=== PATIENT | male | born 2000 | race Hispanic/Latino ===

== ENCOUNTER 2022-10-14 21:06 | Inpatient (IN) | payer SELFPAY ==
[2022-10-14] MEDS ORDERED: NA CHLORIDE 0.9% 2,000 ML ONE (23:34)
[2022-10-15 00:09] LABS: Hematocrit 54.8 % (39.6-49.0); MCV 84.6 fL (80-100); MPV 10.1 fL (7.6-11.3); Platelets 361 thou/uL (152-406); RBC Red Blood Cell Count 6.47 M/uL (4.33-5.43)
[2022-10-15 00:36] LABS: Bilirubin Total 0.9 mg/dL (0.2-1.0); Potassium 4.3 mEq/L (3.5-5.1); Protein, Total 11.4 g/dL (6.4-8.2)
[2022-10-15 00:39] LABS: Albumin 6.7 g/dL (3.4-5.0)
[2022-10-15] MEDS ORDERED: NA CHLORIDE 0.9% 1,000 ML ONE (01:12)
--- NOTE | 2022-10-15 01:32 | EDPHYS ---
Physician Documentation [facility] Name: Liset Lazo Jr Age: 21 yrs Sex: Male : 2000 Arrival Date: 10/14/2022 Time: 21:06 Bed 8 Private MD: ED Physician Amarjit Pacheco HPI: 10/14 23:58 This 21 yrs old Male presents to ER via Ambulatory with complaints of Heat Exposure, kdr Headache, Nausea/Vomiting, MUSCLE ACHES/PAINS. 23:59 The patient states that he was at work this morning and working in the heat. When he kdr took a break a little bit later he started to drink water and some electrolyte solutions. He began to feel somewhat nauseated and vomited and had some tenseness in his stomach associated with the vomiting. In general he just does not feel well at this time and feels dehydrated. He is nontoxic-appearing on presentation. Onset: The symptoms/episode began/occurred suddenly, this morning. Severity of symptoms: At their worst the symptoms were mild moderate just prior to arrival, in the emergency department the symptoms are unchanged. The patient has not experienced similar symptoms in the past. The patient has not recently seen a physician. Historical: - Allergies: 21:38 No Known Allergies; cm10 - Home Meds: 21:38 None [Active]; cm10 - PMHx: 21:38 None; cm10 - PSHx: 21:38 Appendectomy; cm10 - Immunization history:: Adult Immunizations unknown. - Social history:: Smoking status: Reported history of juuling and/or vaping. ROS: 23:59 Constitutional: Negative for fever, chills, and weight loss, Eyes: Negative for injury, kdr pain, redness, and discharge, Neck: Negative for injury, pain, and swelling, Cardiovascular: Negative for chest pain, palpitations, and edema, Respiratory: Negative for shortness of breath, cough, wheezing, and pleuritic chest pain, Back: Negative for injury and pain, MS/Extremity: Negative for injury and deformity, Skin: Negative for injury, rash, and discoloration, Neuro: Negative for headache, weakness, numbness, tingling, and seizure activity. Psych: Negative for depression, anxiety, suicide ideation, homicidal ideation, and hallucinations, Allergy/Immunology: Negative for hives, rash, and allergies, Endocrine: Negative for neck swelling, polydipsia, polyuria, polyphagia, and marked weight changes, Hematologic/Lymphatic: Negative for swollen nodes, abnormal bleeding, and unusual bruising. 23:59 Abdomen/GI: Positive for abdominal pain, nausea and vomiting. Exam: 23:59 Constitutional: This is a well developed, well nourished patient who is awake, alert, kdr and in no acute distress. Head/Face: Normocephalic, atraumatic. Eyes: Pupils equal round and reactive to light, extra-ocular motions intact. Lids and lashes normal. Conjunctiva and sclera are non-icteric and not injected. Cornea within normal limits. Periorbital areas with no swelling, redness, or edema. Neck: Trachea midline, no thyromegaly or masses palpated, and no cervical lymphadenopathy. Supple, full range of motion without nuchal rigidity, or vertebral point tenderness. No Meningismus. Chest/axilla: Normal chest wall appearance and motion. Nontender with no deformity. No lesions are appreciated. Cardiovascular: Regular rate and rhythm with a normal S1 and S2. No gallops, murmurs, or rubs. Normal PMI, no JVD. No pulse deficits. Respiratory: Lungs have equal breath sounds bilaterally, clear to auscultation and percussion. No rales, rhonchi or wheezes noted. No increased work of breathing, no retractions or nasal flaring. Abdomen/GI: Soft, non-tender, with normal bowel sounds. No distension or tympany. No guarding or rebound. No evidence of tenderness throughout. Back: No spinal tenderness. No costovertebral tenderness. Full range of motion. Skin: Warm, dry with normal turgor. Normal color with no rashes, no lesions, and no evidence of cellulitis. MS/ Extremity: Pulses equal, no cyanosis. Neurovascular intact. Full, normal range of motion. Neuro: Awake and alert, GCS 15, oriented to person, place, time, and situation. Cranial nerves II-XII grossly intact. Motor strength 5/5 in all extremities. Sensory grossly intact. Cerebellar exam normal. Normal gait. Psych: Awake, alert, with orientation to person, place and time. Behavior, mood, and affect are within normal limits. Vital Signs: 21:36 BP 134 / 80; Pulse 106; Resp 16; Temp 98; Pulse Ox 100% ; Weight 89.81 kg; Height 5 ft. cm10 5 in. ; Pain 10; 23:30 BP 118 / 70; Pulse 84; Resp 16; Pulse Ox 100% on R/A; jb4 10/15 01:00 BP 137 / 68; Pulse 86; Resp 16; Pulse Ox 100% on R/A; 02:45 BP 127 / 66; Pulse 85; Resp 18 S; Pulse Ox 97% on R/A; as6 10/14 21:36 Body Mass Index 32.95 (89.81 kg, 165.1 cm) cm10 10/14 21:36 Pain Scale: Adult cm10 MDM: 10/14 23:59 Data reviewed: vital signs, nurses notes, lab test result(s). kdr 10/15 01:31 Patient medically screened. kdr 10/14 23:10 Order name: CBC with Diff; Complete Time: 00:29 kdr 10/14 23:10 Order name: CMP; Complete Time: 00:54 kdr 10/14 23:10 Order name: CPK; Complete Time: 00:54 kdr 10/15 01:28 Order name: UAM la1 10/15 01:28 Order name: ETOH Level la1 10/15 01:28 Order name: UDS la1 10/15 01:28 Order name: CT Abd/Pelvis - Without Contrast la1 Administered Medications: 10/14 23:32 Drug: NS 0.9% IV 1000 ml Route: IV; Rate: 1 bolus; Site: right antecubital; [facility] 10/15 02:48 Follow up: Response: No adverse reaction; IV Status: Completed infusion; IV Intake: as6 1000ml 10/14 23:32 Drug: NS 0.9% IV 1000 ml Route: IV; Rate: 125 ml/hr; Site: right antecubital; [facility] 10/15 02:48 Follow up: Response: No adverse reaction; IV Status: Infusion continued upon admission; as6 IV Intake: 500ml 01:10 Drug: NS 0.9% IV 1000 ml Route: IV; Rate: 1 bolus; Site: right antecubital; 02:48 Follow up: Response: No adverse reaction; IV Status: Completed infusion; IV Intake: as6 1000ml 02:13 Drug: Ondansetron IVP 4 mg Route: IVP; Site: right antecubital; jb4 02:48 Follow up: Response: No adverse reaction as6 Disposition Summary: 10/15/22 01:31 Hospitalization Ordered Hospitalization Status: Inpatient Admission kdr Provider: Duane Gillis Location: Telemetry/MedSurg (Inpatient) kdr Condition: Fair kdr Problem: new kdr Symptoms: have improved kdr Bed/Room Type: Standard kdr Room Assignment: 214(10/15/22 01:55) cg Diagnosis - Acute kidney failure, unspecified kdr - Rhabdomyolysis kdr - Dehydration kdr Forms: - Medication Reconciliation Form kdr - SBAR form kdr - Leadership Thank You Letter kdr Signatures: Dispatcher [employer] EDMS Amarjit Pacheco MD MD kdr Darling Beltran RN RN cg Jaylon Dumont RN RN jb4 Helen Garcia RN RN cm10 Abilio Ortiz RN as6 Corrections: (The following items were deleted from the chart) 10/14 21:38 21:38 PSHx: None; cm10 cm10 10/15 01:55 01:31 kdr 02:32 10/14 23:11 Urinalysis+U.LAB.BRZ ordered. EDMS EDMS
--- NOTE | 2022-10-15 01:32 | ER ---
Nurse's Notes [facility] Name: Liset Lazo Jr Age: 21 yrs Sex: Male : 2000 Arrival Date: 10/14/2022 Time: 21:06 Bed 8 Private MD: Diagnosis: Acute kidney failure, unspecified;Rhabdomyolysis;Dehydration Presentation: 10/14 21:36 Chief complaint: Patient states: Nausea and vomiting onset today. Pt reports vomiting 9 cm10 times today. Pt states, "I think that it is heat exhaustion.". Coronavirus screen: Vaccine status: Patient reports being unvaccinated. Ebola Screen: Patient denies travel to an Ebola-affected area in the 21 days before illness onset. No symptoms or risks identified at this time. Initial Sepsis Screen: Does the patient meet any 2 criteria? No. Patient's initial sepsis screen is negative. Does the patient have a suspected source of infection? No. Patient's initial sepsis screen is negative. Risk Assessment: Do you want to hurt yourself or someone else? Patient reports no desire to harm self or others. Onset of symptoms was October 14, 2022. 21:36 Method Of Arrival: Ambulatory cm10 21:36 Acuity: AGUSTÍN 3 cm10 Historical: - Allergies: 21:38 No Known Allergies; cm10 - Home Meds: 21:38 None [Active]; cm10 - PMHx: 21:38 None; cm10 - PSHx: 21:38 Appendectomy; cm10 - Immunization history:: Adult Immunizations unknown. - Social history:: Smoking status: Reported history of juuling and/or vaping. Screenin:30 [facility] ED Fall Risk Assessment (Adult) History of falling in the last 3 months, jb4 including since admission No falls in past 3 months (0 pts) Confusion or Disorientation No (0 pts) Score/Fall Risk Level 0 - 2 = Low Risk Oriented to surroundings, Maintained a safe environment. Abuse screen: Denies threats or abuse. Nutritional screening: No deficits noted. Tuberculosis screening: No symptoms or risk factors identified. Assessment: 23:36 General: Appears in no apparent distress. uncomfortable, Behavior is calm, cooperative, jb4 appropriate for age. Pain: Complains of pain in Headache Pain does not radiate. Pain currently is 10 out of 10 on a pain scale. Neuro: Level of Consciousness is awake, alert, obeys commands, Oriented to person, place, time, situation. Cardiovascular: Patient's skin is warm and dry. Respiratory: Airway is patent Respiratory effort is even, unlabored, Respiratory pattern is regular, symmetrical. GI: No signs and/or symptoms were reported involving the gastrointestinal system. : No signs and/or symptoms were reported regarding the genitourinary system. EENT: No signs and/or symptoms were reported regarding the EENT system. Derm: Skin is intact, Skin is dry, Skin is pale, Skin temperature is warm. Musculoskeletal: Circulation, motion, and sensation intact. Range of motion: intact in all extremities. 10/15 01:00 Reassessment: Patient appears in no apparent distress at this time. Patient and/or jb4 family updated on plan of care and expected duration. Pain level reassessed. Patient is alert, oriented x 3, equal unlabored respirations, skin warm/dry/pink. 01:52 Reassessment: Patient appears in no apparent distress at this time. Patient and/or jb4 family updated on plan of care and expected duration. Pain level reassessed. Patient is alert, oriented x 3, equal unlabored respirations, skin warm/dry/pink. 03:00 Reassessment: Patient appears in no apparent distress at this time. Patient and/or jb4 family updated on plan of care and expected duration. Pain level reassessed. Patient is alert, oriented x 3, equal unlabored respirations, skin warm/dry/pink. Vital Signs: 10/14 21:36 BP 134 / 80; Pulse 106; Resp 16; Temp 98; Pulse Ox 100% ; Weight 89.81 kg; Height 5 ft. cm10 5 in. ; Pain 10/10; 23:30 BP 118 / 70; Pulse 84; Resp 16; Pulse Ox 100% on R/A; jb4 10/15 01:00 BP 137 / 68; Pulse 86; Resp 16; Pulse Ox 100% on R/A; jb4 02:45 BP 127 / 66; Pulse 85; Resp 18 S; Pulse Ox 97% on R/A; as6 10/14 21:36 Body Mass Index 32.95 (89.81 kg, 165.1 cm) cm10 10/14 21:36 Pain Scale: Adult cm10 ED Course: 08/17 21:12 Patient arrived in ED. jj6 21:32 Amarjit Pacheco MD is Attending Physician. kdr 21:38 Triage completed. cm10 21:38 Arm band placed on Patient placed in waiting room. cm10 23:03 Abilio Ortiz, RN is Primary Nurse. as6 23:25 Initial lab(s) drawn, by me, sent to lab. Inserted saline lock: 18 gauge in right jb4 antecubital area, using aseptic technique. Blood collected. 23:30 Patient has correct armband on for positive identification. Bed in low position. Call jb4 light in reach. Side rails up X 1. Client placed on continuous cardiac and pulse oximetry monitoring. NIBP monitoring applied. 23:33 CMP Sent. jb4 23:33 CPK Sent. jb4 23:33 CBC with Diff Sent. jb4 10/15 01:30 Duane Gillis MD is Hospitalizing Provider. kdr 02:02 CT Abd/Pelvis - Without Contrast In Process Unspecified. EDMS 02:44 No provider procedures requiring assistance completed. Patient admitted, IV remains in as6 place. 02:49 Provided Education on: need for admit. as6 Administered Medications: 10/14 23:32 Drug: NS 0.9% IV 1000 ml Route: IV; Rate: 1 bolus; Site: right antecubital; [facility] 10/15 02:48 Follow up: Response: No adverse reaction; IV Status: Completed infusion; IV Intake: as6 1000ml 10/14 23:32 Drug: NS 0.9% IV 1000 ml Route: IV; Rate: 125 ml/hr; Site: right antecubital; [facility] 10/15 02:48 Follow up: Response: No adverse reaction; IV Status: Infusion continued upon admission; as6 IV Intake: 500ml 01:10 Drug: NS 0.9% IV 1000 ml Route: IV; Rate: 1 bolus; Site: right antecubital; 4 02:48 Follow up: Response: No adverse reaction; IV Status: Completed infusion; IV Intake: as6 1000ml 02:13 Drug: Ondansetron IVP 4 mg Route: IVP; Site: right antecubital; 4 02:48 Follow up: Response: No adverse reaction as6 Medication: 02:44 VIS not applicable for this client. as6 Intake: 02:48 IV: 1000ml; Total: 1000ml. as6 02:48 IV: 1000ml; Total: 2000ml. as6 02:48 IV: 500ml; Total: 2500ml. as6 Outcome: 01:31 Decision to Hospitalize by Provider. kdr 02:44 Condition: stable as6 02:44 Instructed on the need for admit. 02:49 Admitted to Med/surg accompanied by nurse, via wheelchair, with chart. as6 03:39 Patient left the ED. jb4 Signatures: Dispatcher [employer] EDMS Amarjit Pacheco MD MD kdr Bryson, James RN RN jb4 Inna Crockett Ashby, RN RN as6 Helen Garcia RN RN cm10 Corrections: (The following items were deleted from the chart) 10/14 21:38 21:38 PSHx: None; cm10 cm10
--- NOTE | 2022-10-15 01:48 | P.HP ---
Certification for Inpatient Patient admitted to: Inpatient With expected LOS: >2 Midnights Patient will require the following post-hospital care: None Practitioner: I am a practitioner with admitting privileges, knowledge of patient current condition, hospital course, and medical plan of care. Services: Services provided to patient in accordance with Admission requirements found in Title 42 Section 412.3 of the Code of Federal Regulations Patient History Date of Service: 10/15/22 Reason for admission: Acute renal failure History of Present Illness: Otherwise healthy 19-year-old male presents emergency department chief complaint of heat exhaustion. 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 He reports decent oral intake, denies frequent use of NSAIDs, has not been on antibiotics recently, does not have any recent IV contrast exposure. No known problems with renal function in the past. He was evaluated in the emergency department his labs were significant for white blood cell count 17 hemoglobin 18.2 hematocrit 54.8 sodium 131 chloride 91 creatinine 5.98 BUN 50 GFR 13 glucose 170 albumin 6.7 CPK 531. In the ER he was given 2 L normal saline IV fluid bolus, started on maintenance fluids. Will obtain CT abdomen pelvis without contrast to evaluate for obstructive uropathy, other findings given his vomiting. Patient will be admitted to the hospital for acute renal failure. 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 moist/pink, EOMI, Sclerae nonicteric Neck: Supple, 2+ carotid pulse no bruit, No LAD, Without JVD or thyroid abnormality Respiratory: Clear to auscultation bilaterally, Normal air movement Cardiovascular: Regular rate/rhythm, Normal S1 S2 Gastrointestinal: Normal bowel sounds, No tenderness Musculoskeletal: No tenderness Integumentary: No rashes Neurological: Normal gait, Normal speech, Normal strength at 5/5 x4 extr, Normal tone, Normal affect Lymphatics: No axilla or inguinal lymphadenopathy - Studies Laboratory Data (last 24 hrs) 10/14/22 10/14/22 23:25 23:25 WBC 17.00 H Hgb 18.2 H Hct 54.8 H Plt Count 361 Sodium 131 L Potassium 4.3 BUN 50 H Creatinine 5.98 H Glucose 170 H Total Bilirubin 0.9 AST 27 ALT 38 Alkaline Phosphatase 76 Assessment and Plan - Plan Assessment: Acute renal failure Plan: Acute renal failure Nephrology consult, renal ultrasound, IV fluids. Reports feeling unwell since February but much worse last 2 days while working in the hot sun carrying scaffolding. Denies use of NSAIDs with any frequency, recent antibiotics or IV contrast exposure CPK mildly elevated, will trend. DVT PPX: Heparin subcu Code status: Full Discharge Plan: Home Plan to discharge in: 72 Hours - Advance Directives Does patient have a Living Will: No Does patient have a Durable POA for Healthcare: No - Code Status/Comfort Care Code Status Assessed: Yes (Full code) Critical Care: No Time Spent Managing Pts Care (In Minutes): 55
[2022-10-15] MEDS ORDERED: ONDANSETRON 4 MG/2 ML VIAL ONE (02:06)
[2022-10-15 02:41] LABS: Calcium Oxalate Crystals- Ur Few /HPF (None Seen); Specific Gravity 1.025 (1.005-1.030); Urine Bacteria <20 /HPF (<20); Urine Bilirubin 1+ (Negative); Urine Blood 2+ (Negative); Urine Clarity Extremely Turbid (Clear); Urine Color Yellow (Yellow); Urine Glucose TRACE (Negative); Urine Mucus 4+ /HPF (None Seen); Urine Protein 2+ (Negative); Urine Urobilinogen 1+ (Normal)
[2022-10-15 02:57] LABS: Barbiturates NEGATIVE (NEGATIVE); Benzodiazepines NEGATIVE (NEGATIVE); Cocaine NEGATIVE (NEGATIVE); METHAMPHETAM NEGATIVE (NEGATIVE); Methadone NEGATIVE (NEGATIVE); Opiates NEGATIVE (NEGATIVE); Phencyclidine NEGATIVE (NEGATIVE); THC Cannibis NEGATIVE (NEGATIVE)
[2022-10-15 03:25] VITALS: BMI 31.8
[2022-10-15] MEDS ORDERED: ACETAMINOPHEN 500 MG TAB PO PRN (03:26)
[2022-10-15] MEDS ORDERED: ONDANSETRON 4 MG/2 ML VIAL IV PRN (03:26)
[2022-10-15] MEDS: NA CHLORIDE 0.9% 1,000 ML IV SCH ×4 (03:53→23:26)
[2022-10-15 06:44] LABS: Absolute Lymphocytes (CBC) 1.5 K/uL (0.7-4.9); Hematocrit 43.7 % (39.6-49.0); Lymphocytes % 11.9 % (15.3-44.8); MPV 9.9 fL (7.6-11.3); Platelets 297 thou/uL (152-406); RBC Red Blood Cell Count 5.14 M/uL (4.33-5.43)
--- NOTE | 2022-10-15 06:56 | P.PN ---
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 Denies use of NSAIDs with any frequency, recent antibiotics or IV contrast exposure renal u/s (10/15): unremarkable CT abdomen (10/15): pending Nephrology consulted Cont IVF CPK mildly elevated, will trend. PRN pain medication PRN antiemetics VTE: heparin sq Code: Full Dispo: Home
[2022-10-15 07:14] LABS: Albumin 4.5 g/dL (3.4-5.0); Bilirubin Total 0.8 mg/dL (0.2-1.0); Potassium 3.9 mEq/L (3.5-5.1); Protein, Total 7.8 g/dL (6.4-8.2); Thyroid Stimulating Hormone 0.32 uIU/mL (0.358-3.740); Uric Acid 12.2 mg/dL (3.5-7.2)
--- NOTE | 2022-10-15 07:39 | RAD REPORT ---
EXAM DESCRIPTION: US - Renal Ultrasound-Complete - 10/15/2022 5:48 am CLINICAL HISTORY: acute renal failure COMPARISON: Abdomen Pelvis Wo Contrast dated 10/15/2022 FINDINGS: Both kidneys are normal in size, shape and echotexture. The right kidney measures 11.1 cm. No hydronephrosis, focal mass or perinephric fluid. The left kidney measures 8.9 cm. No hydronephrosis, focal mass or perinephric fluid. The urinary bladder is incompletely distended without gross abnormality seen. IMPRESSION: Unremarkable renal sonogram.
[2022-10-15] MEDS: HEPARIN 5000 UNIT/ML 1 ML VIAL SQ SCH ×2 (08:54→19:29)
[2022-10-15 14:40] LABS: UR PROTEIN 17.3 mg/dL (<11.9)
--- NOTE | 2022-10-15 14:43 | P.CNS ---
Date of Consult: 10/15/22 Reason for Consult: NABILA Requesting Physician: Duane Gillis Chief Complaint: Acute renal failure History of Present Illness: 19M who p/w gen weakness, nausea, & vomiting, admitted for heat exhaustion & NABILA. He was working outside in ambient heat in the past couple of days & started having nausea/vomiting. Serum creatinine 5.98 BUN 50 GFR 13 on adm. CPK 531. He is receiving IVF. Renal fxn better today. 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 - Family History Father History Unknown: Yes Mother Medical History: Hypertension - Social History Alcohol use: Yes CD- Drugs: No Caffeine use: Yes Place of Residence: Home Review of Systems General: Weakness Eyes: Unremarkable ENT: Unremarkable Respiratory: Unremarkable Cardiovascular: Unremarkable Gastrointestinal: Nausea, Vomiting Genitourinary: Unremarkable Musculoskeletal: Unremarkable Integumentary: Unremarkable Neurological: Unremarkable Lymphatics: Unremarkable Physical Examination Temp Pulse Resp BP Pulse Ox 98.7 F 62 14 95/52 L 97 10/15/22 12:00 10/15/22 12:00 10/15/22 12:00 10/15/22 12:00 10/15/22 12:00 General: In no apparent distress HEENT: Atraumatic, Normocephalic Neck: Supple Respiratory: Clear to auscultation bilaterally Cardiovascular: No rubs, No murmurs Gastrointestinal: Soft and benign, Non-distended Musculoskeletal: No clubbing Integumentary: No warmth Neurological: Normal speech, Normal tone Lymphatics: No axilla or inguinal lymphadenopathy Urinary: Other (no bladder distention) External genitalia: Deferred Rectal: Deferred Laboratory Data (last 24 hrs) 10/14/22 10/14/22 23:25 23:25 WBC 17.00 H Hgb 18.2 H Hct 54.8 H Plt Count 361 Sodium 131 L Potassium 4.3 BUN 50 H Creatinine 5.98 H Glucose 170 H Total Bilirubin 0.9 AST 27 ALT 38 Alkaline Phosphatase 76 Conclusions/Impression: # NABILA 2/2 prerenal state 2/2 heat exhaustion Improving, SCr improved from 5.9 to 2.9 Renal US unremarkable CPK not sig elevated, no rhabdo Cont IVF [place] po fluid intake # Nausea & vomiting Anti-emetics prn # Dispo Anticipate dc tomorrow
[2022-10-15 14:44] LABS: UR SODIUM < 15 mmol/L (27-287)
--- NOTE | 2022-10-15 15:21 | RAD REPORT ---
EXAM DESCRIPTION: CT - Abdomen Pelvis Wo Contrast - 10/15/2022 2:00 am CLINICAL HISTORY: 21 years Male acute renal failure, vomiting COMPARISON: None TECHNIQUE: CT of the abdomen and pelvis without contrast. All CT scans at this facility use dose modulation, iterative reconstruction, and/or weight based dosi ng when appropriate to reduce radiation dose to as low as reasonably achievable. FINDINGS: Lower thorax: Lung bases are clear Abdomen: Stomach: Within normal limits Liver: No focal lesions. No intrahepatic ductal distention. Gallbladder: Nondistended Pancreas: Within normal limits Spleen: Within normal limits Right kidney: No hydronephrosis. No renal or ureteral calculi. Left kidney: No hydronephrosis. No renal or ureteral calculi. Adrenal glands: Within normal limits Vascular structures: Within normal limits (although limited evaluation on noncontrast exam). Lymph nodes: No lymphadenopathy by size criteria Pelvis: Small bowel: No significant distention. Appendix: Not visualized. No pericecal inflammatory changes. Colon: No distention or acute pericolonic edema. Peritoneum: No free intraperitoneal fluid or air. Bones: No acute bone findings. Bladder: Diffuse wall thickening, likely secondary to underdistention. Reproductive organs: No acute findings. Note that evaluation of the bowel and solid organs is somewhat limited due to lack of intravenous and oral contrast. IMPRESSION: 1. No acute abdominopelvic findings. 2. Diffuse bladder wall thickening, likely secondary to underdistention. Correlate with urinalysis for evidence of cystitis. Electronically signed by: Salima Kelly MD 10/15/2022 2:26 AM CDT Due to temporary technical issues with the PACS/Fluency reporting system, reports are being signed by the in house radiologists without review as a courtesy to insure prompt reporting. The interpreting radiologist is fully responsible for the content of the report.
[2022-10-16] MEDS: NA CHLORIDE 0.9% 1,000 ML IV SCH ×2 (01:52→02:20)
[2022-10-16 03:14] LABS: Hematocrit 39.3 % (39.6-49.0); Lymphocytes % 38.5 % (15.3-44.8); MCV 85.6 fL (80-100); MPV 9.4 fL (7.6-11.3); Platelets 226 thou/uL (152-406); RBC Red Blood Cell Count 4.59 M/uL (4.33-5.43)
[2022-10-16 03:32] LABS: Albumin 3.7 g/dL (3.4-5.0); Bilirubin Total 0.9 mg/dL (0.2-1.0); Potassium 4.2 mEq/L (3.5-5.1); Protein, Total 6.4 g/dL (6.4-8.2)
[2022-10-16 05:56] VITALS: O2SAT 97
[2022-10-16 06:31] VITALS: TEMP 98.3
--- NOTE | 2022-10-16 07:35 | P.DS ---
Admission Date: 10/15/22 Discharge Date: 10/16/22 Disposition: ROUTINE DISCHARGE Discharge Condition: GOOD Reason for Admission: Acute renal failure Consultations: Nephrology - Dr. Mojica Brief History of Present Illness: 19 yo M, PMH: No previous history Patient presents emergency department chief complaint of heat exhaustion. 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 He reports decent oral intake, denies frequent use of NSAIDs, has not been on antibiotics recently, does not have any recent IV contrast exposure. No known problems with renal function in the past. He was evaluated in the emergency department his labs were significant for white blood cell count 17 hemoglobin 18.2 hematocrit 54.8 sodium 131 chloride 91 creatinine 5.98 BUN 50 GFR 13 glucose 170 albumin 6.7 CPK 531. In the ER he was given 2 L normal saline IV fluid bolus, started on maintenance fluids. Will obtain CT abdomen pelvis without contrast to evaluate for obstructive uropathy, other findings given his vomiting. Hospital Course: Problem List: NABILA, prerenal; resolved; secondary to dehydration/heat exhaustion Heat Exhaustion Dehydration Patient presented with heat exhaustion, vomiting. He was found to have a NABILA, secondary to heat exhaustion / dehydration. Nephrology was consulted. Patients symptoms resolved with IV fluids. CT abd/pelvis and renal ultrasound were normal / without acute findings. CPK was not significantly elevated (500s) and remained stable. No rhabdomyolysis. Urine output improved, muscle cramping improved, renal function improved and patient was deemed stable for discharge home. Labs returned all back to normal. Vitals within normal limits and stable. Advised patient to ensure adequate hydration and to take proper breaks at work to prevent recurrent episodes. Advised to take it easy for ~2-3 days prior to returning to work. Return to work Tuesday allowed with appropriate breaks and adequate hydration. Of note TSH was borderline low: 0.320 (range 0.358-3.740) Free T4 within normal limits but at lower range: 0.96 (range: 0.76-1.46) Recommend repeat blood work in several weeks to recheck thyroid studies. Follow up: PCP in 1 week Physical Exam: GEN: Alert, oriented, NAD HEENT: Normal conjunctiva, sclera anicteric CV: Regular rate and rhythm, no edema Pulm: Nonlabored respirations on room air ABD: Soft, nontender, nondistended Neuro: Normal speech, normal affect Vital Signs/Physical Exam: Temp Pulse Resp BP Pulse Ox 98.3 F 55 15 108/50 L 97 10/16/22 04:00 10/16/22 04:00 10/16/22 04:00 10/16/22 04:00 10/16/22 04:00 Laboratory Data at Discharge: WBC 7.70 thou/uL (4.3-10.9) 10/16/22 02:57 Hgb 13.2 g/dL (13.6-17.9) L 10/16/22 02:57 Hct 39.3 % (39.6-49.0) L 10/16/22 02:57 Plt Count 226 thou/uL (152-406) 10/16/22 02:57 Sodium 137 mEq/L (136-145) 10/16/22 02:57 Potassium 4.2 mEq/L (3.5-5.1) 10/16/22 02:57 BUN 25 mg/dL (7-18) H 10/16/22 02:57 Creatinine 1.02 mg/dL (0.70-1.30) 10/16/22 02:57 Glucose 101 mg/dL (74-106) 10/16/22 02:57 Uric Acid 12.2 mg/dL (3.5-7.2) H 10/15/22 06:10 Total Bilirubin 0.9 mg/dL (0.2-1.0) 10/16/22 02:57 AST 22 U/L (15-37) 10/16/22 02:57 ALT 24 U/L (16-61) 10/16/22 02:57 Alkaline Phosphatase 41 U/L (45-117) L 10/16/22 02:57 Physician Discharge Instructions: Patient presented with heat exhaustion, vomiting. He was found to have a NABILA, secondary to heat exhaustion / dehydration. Nephrology was consulted. Patients symptoms resolved with IV fluids. CT abd/pelvis and renal ultrasound were normal / without acute findings. Urine output improved, muscle cramping improved, renal function improved and patient was deemed stable for discharge home. Labs returned all back to normal. Vitals within normal limits and stable. Advised patient to ensure adequate hydration and to take proper breaks at work to prevent recurrent episodes. Advised to take it easy for ~2-3 days prior to returning to work. Return to work Tuesday allowed with appropriate breaks and adequate hydration. Of note TSH was borderline low: 0.320 (range 0.358-3.740) Free T4 within normal limits but at lower range: 0.96 (range: 0.76-1.46) Recommend repeat blood work in several weeks to recheck thyroid studies. Follow up: PCP in 1 week Followup: NONE,NONE [UNKNOWN] - 1 Week (follow up with a doctor in one week. a list have been provided) Time spent managing pt's care (in minutes): 45
[2022-10-16 08:44] VITALS: BP 97/49
[2022-10-16] MEDS: HEPARIN 5000 UNIT/ML 1 ML VIAL SQ SCH (09:00)
--- NOTE | 2022-10-16 20:15 | PN ---
Date of Progress Note: 10/16/2022 Chief Complaint: Acute kidney injury. Subjective: Patient is a -vliz-hdm man who presented to the hospital because of generalize d weakness, vomiting and he was found to have acute kidney injury. He was admitted for heat exhausti on and was found to have severe nonoliguric urine output. Renal function has improved. C PK level was elevated to 531. Patient is on IV fluids and renal function has improved to baseline. Review of Systems: Denies chest pain, palpitation. Physical Examination: Lungs: Clear to auscultation bilaterally. Heart: S1, S2. Abdomen: Soft. Extremities: No edema. Impression And Plan: Acute kidney injury secondary to prerenal state, improving with IV fluids. Frank[place] al ultrasound did not show obstructive uropathy. CPK level is not significantly elevated. There are no significant rhabdomyolysis. Continue IV fluids. Avoid nephrotoxic medication. Nausea, vomiting , per primary team. MEGAN/MODL Voice ID: [id number] Report ID: [id number]
== END 2022-10-16 10:41 | disposition home or self-care (01) | DRG 923 ==
LOC: ER 21:06 → 2ND 10-15 01:39
PROVIDERS: ADMIT Hospitalist; ATTEND Hospitalist
DX: T67.5XXA Heat exhaustion, unspecified, initial encounter (principal); N17.9 Acute kidney failure, unspecified; M62.82 Rhabdomyolysis; E86.0 Dehydration; Z90.49 Acquired absence of other specified parts of digestive tract
CPT/HCPCS: 36415; 74176; 76770; 80053; 80307; 81001; 82077; 82550; 82570; 83880; 83930; 83935; 84132; 84156; 84300; 84439; 84443; 84550; 85025; 96361; 96374; 99285; J1644; J2405; J7030